=== PATIENT | male | born 1965 | race Caucasian/White ===

== ENCOUNTER 2017-07-26 14:45 | Outpatient (RCR) | payer OTHER | END 2017-09-02 10:39 | disposition home or self-care (01) | LOC: WSOH 14:45 | DX: S30.0XXA Contusion of lower back and pelvis, initial encounter (principal); M62.830 Muscle spasm of back; W22.8XXA Striking against or struck by other objects, initial encounter; Y99.0 Civilian activity done for income or pay; Z88.0 Allergy status to penicillin ==

== ENCOUNTER 2018-07-09 09:08 | Emergency (ER) | payer SELFPAY | END 2018-07-09 14:08 | disposition home or self-care (01) | LOC: COL.ER 09:08 | DX: R10.32 Left lower quadrant pain (principal); R19.7 Diarrhea, unspecified; J45.909 Unspecified asthma, uncomplicated; Z88.0 Allergy status to penicillin; Z90.89 Acquired absence of other organs; Z87.442 Personal history of urinary calculi; Z90.49 Acquired absence of other specified parts of digestive tract ==

== ENCOUNTER 2018-09-22 13:35 | Outpatient (RCR) | payer OTHER ==
[~2018-09-22 13:35] MED LIST: Inhaler; NORCO 325 MG-7.1 TAB PO; ZOFRAN ODT4 MG PO
== END 2018-10-03 15:45 | disposition home or self-care (01) ==
LOC: WSOH
DX: S70.11XA Contusion of right thigh, initial encounter (principal); W20.8XXA Other cause of strike by thrown, projected or falling object, initial encounter; Y92.512 Supermarket, store or market as the place of occurrence of the external cause; Y99.0 Civilian activity done for income or pay; I10 Essential (primary) hypertension; I12.9 Hypertensive chronic kidney disease with stage 1 through stage 4 chronic kidney disease, or unspecified chronic kidney disease; N18.9 Chronic kidney disease, unspecified; J45.909 Unspecified asthma, uncomplicated; Z90.49 Acquired absence of other specified parts of digestive tract; Z87.891 Personal history of nicotine dependence; Z88.0 Allergy status to penicillin; E66.3 Overweight; Z91.041 Radiographic dye allergy status
CPT/HCPCS: 24774; L1810

== ENCOUNTER 2018-10-16 14:06 | Outpatient (RCR) | payer OTHER | END 2018-11-13 10:24 | LOC: WSOH 14:06 | DX: S70.11XD Contusion of right thigh, subsequent encounter (principal) ==

== ENCOUNTER 2019-05-28 14:13 | Emergency (ER) | payer OTHER ==
[~2019-05-28] VITALS: Ht 165.1 cm; Wt 93.2 kg
[2019-05-28 14:22] VITALS: BP 194/94; TEMP 98.9
[2019-05-28] MEDS ORDERED: FLEXERIL 1010 MG/TAB PO (17:20)
[2019-05-28] MEDS ORDERED: NORCO 325 MG-51 TAB PO (17:20)
[2019-05-28] MEDS ORDERED: MEDROL 4MG DOSPA4 MG PO (17:20)
[2019-05-28 17:42] VITALS: PULSE 74
== END 2019-05-28 18:54 | disposition home or self-care (01) ==
LOC: COL.ER 14:13
DX: S33.9XXA Sprain of unspecified parts of lumbar spine and pelvis, initial encounter (principal); M54.16 Radiculopathy, lumbar region; X50.0XXA Overexertion from strenuous movement or load, initial encounter
CPT/HCPCS: J1885; J2360

== ENCOUNTER 2019-08-10 13:02 | Outpatient (RCR) | payer OTHER ==
[~2019-08-10 13:02] MED LIST changes: +FLEXERIL 1010 MG/TAB PO; +MEDROL 4MG DOSPA4 MG PO; +NORCO 325 MG-51 TAB PO
== END 2019-09-18 12:54 | disposition home or self-care (01) ==
LOC: WSOH 13:02
DX: S39.012A Strain of muscle, fascia and tendon of lower back, initial encounter (principal); M51.36 Other intervertebral disc degeneration, lumbar region; Z87.891 Personal history of nicotine dependence; Z90.49 Acquired absence of other specified parts of digestive tract; Z90.89 Acquired absence of other organs; J45.909 Unspecified asthma, uncomplicated; I10 Essential (primary) hypertension; N28.9 Disorder of kidney and ureter, unspecified; Y99.0 Civilian activity done for income or pay
CPT/HCPCS: G0283-GP

== ENCOUNTER 2020-11-24 16:33 | Inpatient (IN) | payer OTHER ==
[~2020-11-24] VITALS: Ht 180.3 cm; Wt 95.5 kg
[2020-11-24 18:03] LABS: BASO % 0.5 % (0.0-2.0); EOS # 0.1 (0.0-0.7); EOS % 0.9 % (0-4.0); GRAN # 6.3 (1.4-6.5); GRAN % 70.9 % (42.2-75.2); HEMATOCRIT 48.4 % (42.0-52.0); HEMOGLOBIN 15.9 g/dl (13.5-18.0); LYMPH # 1.7 (1.2-3.4); MEAN CELL VOLUME 91 fl (80.0-100.0); MEAN CORPUSCULAR HEMOGLOBIN 30 pg (27.0-31.0); MEAN CORPUSCULAR HGB CONC 33 g/dl (33.0-37.0); MEAN PLATELET VOLUME 11.4 fl (7.4-10.4); MONO # 0.8 (0.1-0.6); MONO % 8.5 % (1.7-9.3); PLATELET COUNT 240 K/mm3 (130-400); RED BLOOD COUNT 5.33 M/mm3 (4.20-5.60); REDCELL DISTRIBUTION WIDTH-CV 12.7 % (11.5-14.5)
[2020-11-24 18:04] LABS: INR 1.1 (0.8-3.0); PROTHROMBIN TIME 12.6 SECONDS (9.7-12.8)
[2020-11-24 18:08] LABS: ALANINE AMINOTRANSFERASE 17 U/L (4-49); ALBUMIN 4.2 gm/dL (3.5-5.0); ALKALINE PHOSPHATASE 62 U/L (50-136); ANION GAP 6 mmol/L (7-16); AST,SGOT 29 U/L (15-37); BILIRUBIN,TOTAL 0.7 mg/dL (0.0-1.0); BLOOD UREA NITROGEN 19 mg/dL (9-20); CALCIUM 9.5 mg/dL (8.4-10.2); CARBON DIOXIDE 24 mmol/L (22-30); CHLORIDE 109 mmol/L (98-107); CREATININE, serum 1.16 (0.66-1.25); GLUCOSE 112 mg/dL (74-106); SODIUM 139 mmol/L (137-145); TOTAL PROTEIN 8.1 gm/dL (6.4-8.2)
[2020-11-24 18:37] LABS: TROPONIN-I < 0.012 ng/mL (0.000-0.035)
[2020-11-24] MEDS ORDERED: PRINIVIL10 MG PO (19:17)
[2020-11-24] MEDS ORDERED: PROTONIX20 MG PO (19:17)
[2020-11-24 20:00] VITALS: BP 151/88; PULSE 75; TEMP 97.7
[2020-11-25 00:51] VITALS: BP 144/70; PULSE 69; TEMP 98.3
[2020-11-25 04:22] VITALS: BP 137/72; PULSE 56; TEMP 98.3
[2020-11-25 07:30] LABS: CHOLESTEROL RISK RATIO 3.3
[2020-11-25 07:44] VITALS: BP 137/83; PULSE 57; TEMP 98.5
[2020-11-25 09:57] LABS: CALCIUM 9.4 mg/dL (8.4-10.2); CREATININE, serum 1.28 (0.66-1.25); POTASSIUM 3.7 mmol/L (3.4-5.0)
[2020-11-25 09:58] LABS: HEMATOCRIT 49.1 % (42.0-52.0); HEMOGLOBIN 15.9 g/dl (13.5-18.0); MEAN CELL VOLUME 93 fl (80.0-100.0); MEAN CORPUSCULAR HEMOGLOBIN 30 pg (27.0-31.0); MEAN CORPUSCULAR HGB CONC 32 g/dl (33.0-37.0); PLATELET COUNT 246 K/mm3 (130-400); RED BLOOD COUNT 5.26 M/mm3 (4.20-5.60); REDCELL DISTRIBUTION WIDTH-CV 12.8 % (11.5-14.5)
[2020-11-25 11:53] VITALS: BP 148/89; PULSE 62; TEMP 97.6
[2020-11-25 17:14] VITALS: BP 152/83; PULSE 65; TEMP 97.4
[2020-11-25 20:11] VITALS: BP 157/80; PULSE 79; TEMP 97.6
[2020-11-26 00:08] VITALS: BP 145/82; PULSE 58; TEMP 97.8
[2020-11-26 04:00] VITALS: BP 120/70; PULSE 54; TEMP 97.7
[2020-11-26 07:25] LABS: HEMATOCRIT 48.4 % (42.0-52.0); HEMOGLOBIN 15.7 g/dl (13.5-18.0); MEAN CELL VOLUME 93 fl (80.0-100.0); MEAN CORPUSCULAR HEMOGLOBIN 30 pg (27.0-31.0); MEAN CORPUSCULAR HGB CONC 32 g/dl (33.0-37.0); MEAN PLATELET VOLUME 11.6 fl (7.4-10.4); PLATELET COUNT 222 K/mm3 (130-400); RED BLOOD COUNT 5.18 M/mm3 (4.20-5.60); REDCELL DISTRIBUTION WIDTH-CV 12.8 % (11.5-14.5)
[2020-11-26 07:34] LABS: CALCIUM 9.1 mg/dL (8.4-10.2); CREATININE, serum 1.24 (0.66-1.25); POTASSIUM 3.6 mmol/L (3.4-5.0)
[2020-11-26 08:07] VITALS: BP 157/74; PULSE 59; TEMP 98
[2020-11-26] MEDS ORDERED: LIPITOR 40MG TA40 MG PO (09:58)
[2020-11-26] MEDS ORDERED: PLAVIX 75MG TAB75 MG PO (09:58)
[2020-11-26] MEDS ORDERED: ZESTRIL40 MG PO (09:59)
[2020-11-26] MEDS ORDERED: ASPIRIN 81M81 MG/TA2 PO (10:00)
[2020-11-26 11:57] VITALS: BP 143/52; PULSE 60; TEMP 97.9
== END 2020-11-26 16:00 | disposition home or self-care (01) | DRG 65 ==
LOC: COL.ER 16:33 → MEDICAL 19:05 → EDBEDREQ 19:50 → MEDICAL 23:00 → SURG 11-25 15:37 → MEDICAL 11-26 14:16 → SURG 11-26 14:16 → MEDICAL 11-26 16:00
PROVIDERS: Physician Assistant; Student in an Organized Health Care Education/Training Program; ADMIT Internal Medicine
DX: I63.89 Other cerebral infarction (principal); N17.9 Acute kidney failure, unspecified; G81.94 Hemiplegia, unspecified affecting left nondominant side; G89.29 Other chronic pain; M54.9 Dorsalgia, unspecified; K21.9 Gastro-esophageal reflux disease without esophagitis; E78.5 Hyperlipidemia, unspecified; I10 Essential (primary) hypertension; R47.81 Slurred speech; M50.30 Other cervical disc degeneration, unspecified cervical region; Z90.49 Acquired absence of other specified parts of digestive tract
CPT/HCPCS: 99223-AI; 99232-AI; 99239; A9585; J1200; J1650; J2060; J2405; J7030; Q9967

== ENCOUNTER 2021-02-16 21:39 | Emergency (ER) | payer MEDICAID ==
[~2021-02-16] VITALS: Ht 165.1 cm; Wt 97.3 kg
[~2021-02-16 21:39] MED LIST changes: +ASPIRIN 81M81 MG/TA2 PO; +LIPITOR 40MG TA40 MG PO; +PLAVIX 75MG TAB75 MG PO; +PRINIVIL10 MG PO; +PROTONIX20 MG PO; +ZESTRIL40 MG PO
[2021-02-16 21:46] VITALS: TEMP 99.5
[2021-02-16 22:58] LABS: BASO # 0.1 (0.0-0.2); BASO % 0.5 % (0.0-2.0); EOS # 0.5 (0.0-0.7); EOS % 5.1 % (0-4.0); GRAN # 6.1 (1.4-6.5); GRAN % 62.1 % (42.2-75.2); HEMATOCRIT 44.9 % (42.0-52.0); HEMOGLOBIN 14.9 g/dl (13.5-18.0); LYMPH # 1.9 (1.2-3.4); LYMPH % 19.5 % (20.0-51.0); MEAN CELL VOLUME 93 fl (80.0-100.0); MEAN CORPUSCULAR HEMOGLOBIN 31 pg (27.0-31.0); MEAN CORPUSCULAR HGB CONC 33 g/dl (33.0-37.0); MEAN PLATELET VOLUME 11.5 fl (7.4-10.4); MONO # 1.2 (0.1-0.6); MONO % 12.5 % (1.7-9.3); PLATELET COUNT 201 K/mm3 (130-400); RED BLOOD COUNT 4.85 M/mm3 (4.20-5.60); REDCELL DISTRIBUTION WIDTH-CV 12.9 % (11.5-14.5)
[2021-02-16 23:15] LABS: ALBUMIN 4.1 gm/dL (3.5-5.0); BILIRUBIN,TOTAL 0.7 mg/dL (0.2-1.2); C-REACTIVE PROTEIN 0.2 mg/dL (0.00-0.50); CALCIUM 9.3 mg/dL (8.4-10.2); CREATININE, serum 1.43 mg/dL (0.72-1.25); POTASSIUM 4.3 mmol/L (3.5-4.5); TOTAL PROTEIN 7.9 gm/dL (6.2-8.1)
[2021-02-16 23:23] LABS: TROPONIN-I 0.01 ng/mL (0.00-0.033)
[2021-02-17] MEDS ORDERED: PREDNISONE20 MG PO (00:41)
[2021-02-17] MEDS ORDERED: ALBUTEROL0.83 MG/ML IH (00:58)
[2021-02-17 01:30] VITALS: BP 131/99; PULSE 79
== END 2021-02-17 01:30 | disposition home or self-care (01) ==
LOC: COL.ER 21:39
PROVIDERS: Nurse Practitioner
DX: J20.9 Acute bronchitis, unspecified (principal); I10 Essential (primary) hypertension; K21.9 Gastro-esophageal reflux disease without esophagitis; Z86.73 Personal history of transient ischemic attack (TIA), and cerebral infarction without residual deficits; Z20.822 Contact with and (suspected) exposure to COVID-19; Z79.02 Long term (current) use of antithrombotics/antiplatelets; Z79.899 Other long term (current) drug therapy
CPT/HCPCS: J7512

== ENCOUNTER → 2021-03-03 | Outpatient (RCR) | payer OTHER ==
[~2021-03-03] MED LIST changes: +ALBUTEROL0.83 MG/ML IH; +PREDNISONE20 MG PO
== END | disposition home or self-care (01) ==
LOC: MKS.ESL.OT → MKS.ESL.PT 12-01 13:15 → WSST 12-03 09:00 → MKS.ESL.PT 12-10 09:00 → MKS.ESL.OT 12-22 14:45 → WSST 01-01 09:45 → MKS.ESL.PT 01-02 10:30 → MKS.ESL.OT 01-05 14:00 → WSST 01-07 11:15 → MKS.ESL.OT 01-12 14:00 → MKS.ESL.PT 02-05 14:15 → MKS.ESL.OT 02-10 15:15
DX: I69.30 Unspecified sequelae of cerebral infarction (principal)

== ENCOUNTER 2021-03-10 13:45 | Outpatient (RCR) | payer MEDICAID | END 2021-05-15 | disposition home or self-care (01) | LOC: MKS.ESL.OT | DX: R53.1 Weakness (principal); Z86.73 Personal history of transient ischemic attack (TIA), and cerebral infarction without residual deficits ==

== ENCOUNTER 2021-07-07 11:00 | Outpatient (RCR) | payer MEDICAID | END 2021-07-13 | disposition still patient (30) | LOC: MKS.ESL.PT | DX: R53.1 Weakness (principal); Z86.73 Personal history of transient ischemic attack (TIA), and cerebral infarction without residual deficits ==

== ENCOUNTER 2021-07-16 12:51 | Emergency (ER) | payer MEDICAID ==
[~2021-07-16] VITALS: Ht 165.1 cm; Wt 95.5 kg
[2021-07-16 13:04] VITALS: BP 176/98; PULSE 72; TEMP 98.6
[2021-07-16 14:32] LABS: BASO # 0.1 K/mm3 (0.0-0.2); BASO % 0.6 % (0.0-2.0); EOS # 0.1 K/mm3 (0.0-0.7); EOS % 0.8 % (0.0-4.0); GRAN # 5.9 K/mm3 (1.4-6.5); GRAN % 70.4 % (42.2-75.2); HEMATOCRIT 45.8 % (42.0-52.0); HEMOGLOBIN 15.6 g/dl (13.5-18.0); LYMPH # 1.5 K/mm3 (1.2-3.4); MEAN CELL VOLUME 90 fl (80.0-100.0); MEAN CORPUSCULAR HEMOGLOBIN 31 pg (27-31); MEAN CORPUSCULAR HGB CONC 34 g/dl (33.0-37.0); MEAN PLATELET VOLUME 11.4 fl (7.4-10.4); MONO # 0.8 K/mm3 (0.1-0.6); PLATELET COUNT 228 K/mm3 (130-400); RED BLOOD COUNT 5.12 M/mm3 (4.20-5.60); REDCELL DISTRIBUTION WIDTH-CV 12.2 % (11.5-14.5)
[2021-07-16 14:34] LABS: COLLECTION METHOD CLEAN CATCH
[2021-07-16 14:41] LABS: MUCOUS Present (NOT PRESENT); PH 6 (5-8); SQUAMOUS EPITHELIAL None Seen /hpf (0-10); URINE APPEARANCE Clear (CLEAR/HAZY); URINE BACTERIA None Seen /hpf (NONE SEEN); URINE BILIRUBIN Negative (NEGATIVE); URINE BLOOD Negative (NEGATIVE); URINE COLOR Yellow (YELLOW); URINE GLUCOSE Negative (NEGATIVE); URINE KETONE Negative (NEGATIVE); URINE LEUKOCYTE ESTERASE Negative (NEGATIVE); URINE NITRATE Negative (NEGATIVE); URINE PROTEIN(semi-quant) Negative (NEGATIVE); URINE RBC 0-2 /hpf (0-2); URINE UROBILINOGEN Negative (NEGATIVE)
[2021-07-16 14:58] LABS: ALBUMIN 4.3 gm/dL (3.5-5.0); BILIRUBIN,TOTAL 0.8 mg/dL (0.2-1.2); CALCIUM 9.3 mg/dL (8.4-10.2); CREATININE, serum 1.29 mg/dL (0.72-1.25); POTASSIUM 4.2 mmol/L (3.5-4.5); TOTAL PROTEIN 7.7 gm/dL (6.2-8.1)
[2021-07-16] MEDS ORDERED: NORCO 325 MG-51 TAB PO (15:30)
[2021-07-16] MEDS ORDERED: ZOFRAN ODT4 MG PO (16:06)
== END 2021-07-16 16:08 | disposition home or self-care (01) ==
LOC: COL.ER 12:51
PROVIDERS: Emergency Medicine
DX: R10.32 Left lower quadrant pain (principal); Z90.49 Acquired absence of other specified parts of digestive tract; Z79.891 Long term (current) use of opiate analgesic

== ENCOUNTER 2021-07-24 12:45 | Outpatient (RCR) | payer MEDICAID | END 2021-08-13 | disposition still patient (30) | LOC: MKS.ESL.PT | DX: R29.898 Other symptoms and signs involving the musculoskeletal system (principal); I69.30 Unspecified sequelae of cerebral infarction; M54.30 Sciatica, unspecified side ==

== ENCOUNTER → 2021-09-16 | Outpatient (CLI) | payer MEDICAID | LOC: COL.LAB 14:01 → COL.RAD 14:07 | DX: R05.9 Cough, unspecified (principal) ==

== ENCOUNTER 2021-10-05 10:14 | Outpatient (RCR) | payer MEDICAID | END 2021-10-05 10:15 | disposition home or self-care (01) | LOC: MKS.ESL.PT 10:14 | DX: I69.30 Unspecified sequelae of cerebral infarction (principal); R29.898 Other symptoms and signs involving the musculoskeletal system ==

== ENCOUNTER → 2021-10-05 10:16 | Outpatient (RCR) | payer MEDICAID ==
[~2021-10-05 10:16] MED LIST changes: +PROVENTIL0.09 MG/A1 IH; +TESSALON PERLE200 MG PO; +ZITHROMAX Z PA250 MG PO
== END | disposition home or self-care (01) ==
LOC: MKS.ESL.PT 08-14 12:45
DX: R42 Dizziness and giddiness (principal)

== ENCOUNTER → 2021-10-22 | Outpatient (CLI) | payer MEDICAID ==
[~2021-10-22] MED LIST changes: -PROVENTIL0.09 MG/A1 IH; -TESSALON PERLE200 MG PO; -ZITHROMAX Z PA250 MG PO
== END ==
LOC: COL.RAD 13:54
DX: I63.9 Cerebral infarction, unspecified (principal)

== ENCOUNTER 2021-11-30 14:56 | Emergency (ER) | payer MEDICAID ==
[~2021-11-30] VITALS: Ht 165.1 cm; Wt 97.3 kg
[2021-11-30 16:02] VITALS: TEMP 98.5
[2021-11-30 18:14] LABS: BASO % 0.3 % (0.0-2.0); EOS # 0.4 K/mm3 (0.0-0.7); EOS % 3.4 % (0.0-4.0); GRAN # 8.6 K/mm3 (1.4-6.5); GRAN % 73.4 % (42.2-75.2); HEMATOCRIT 43.3 % (42.0-52.0); HEMOGLOBIN 14.6 g/dl (13.5-18.0); LYMPH # 1.6 K/mm3 (1.2-3.4); LYMPH % 13.4 % (20.0-51.0); MEAN CELL VOLUME 91 fl (80.0-100.0); MEAN CORPUSCULAR HEMOGLOBIN 31 pg (27-31); MEAN CORPUSCULAR HGB CONC 34 g/dl (33.0-37.0); MONO # 1.1 K/mm3 (0.1-0.6); MONO % 9.2 % (1.7-9.3); PLATELET COUNT 225 K/mm3 (130-400); RED BLOOD COUNT 4.78 M/mm3 (4.20-5.60); REDCELL DISTRIBUTION WIDTH-CV 12.9 % (11.5-14.5)
[2021-11-30 18:28] LABS: ALBUMIN 4.2 gm/dL (3.5-5.0); BILIRUBIN,TOTAL 1.1 mg/dL (0.2-1.2); CALCIUM 9.5 mg/dL (8.4-10.2); CREATININE, serum 1.22 mg/dL (0.72-1.25); POTASSIUM 3.7 mmol/L (3.5-4.5); TOTAL PROTEIN 7.7 gm/dL (6.2-8.1)
[2021-11-30] MEDS ORDERED: ZITHROMAX Z PA250 MG PO (19:11)
[2021-11-30] MEDS ORDERED: PREDNISONE20 MG PO (19:11)
[2021-11-30] MEDS ORDERED: TESSALON PERLE200 MG PO (19:11)
[2021-11-30 19:30] VITALS: BP 163/89; PULSE 81
[2021-11-30] MEDS ORDERED: PROVENTIL0.09 MG/A1 IH (19:40)
== END 2021-11-30 19:30 | disposition home or self-care (01) ==
LOC: COL.ER 14:56
PROVIDERS: Nurse Practitioner Family
DX: J45.901 Unspecified asthma with (acute) exacerbation (principal); I10 Essential (primary) hypertension; Z20.822 Contact with and (suspected) exposure to COVID-19; Z87.891 Personal history of nicotine dependence; Z88.0 Allergy status to penicillin
CPT/HCPCS: J2930

== ENCOUNTER → 2022-02-10 | Outpatient (CLI) | payer MEDICAID ==
[~2022-02-10] MED LIST changes: +PROVENTIL0.09 MG/A1 IH; +TESSALON PERLE200 MG PO; +ZITHROMAX Z PA250 MG PO
== END ==
LOC: COL.VAS 13:15
DX: R06.02 Shortness of breath (principal)

== ENCOUNTER → 2022-08-09 | Outpatient (CLI) | payer MEDICAID | LOC: COL.LAB 07:17 | DX: N52.9 Male erectile dysfunction, unspecified (principal) ==

== ENCOUNTER 2022-08-19 18:47 | Emergency (ER) | payer MEDICAID ==
[~2022-08-19] VITALS: Ht 165.1 cm; Wt 99.1 kg
[2022-08-19 18:58] VITALS: TEMP 98.2
[2022-08-19 19:28] LABS: BASO % 0.5 % (0.0-2.0); EOS # 0.1 K/mm3 (0.0-0.7); EOS % 1.6 % (0.0-4.0); GRAN # 5.3 K/mm3 (1.4-6.5); GRAN % 65.9 % (42.2-75.2); HEMATOCRIT 44.4 % (42.0-52.0); HEMOGLOBIN 15.2 g/dl (13.5-18.0); LYMPH # 1.8 K/mm3 (1.2-3.4); LYMPH % 22.6 % (20.0-51.0); MEAN CELL VOLUME 91 fl (80.0-100.0); MEAN CORPUSCULAR HEMOGLOBIN 31 pg (27-31); MEAN CORPUSCULAR HGB CONC 34 g/dl (33.0-37.0); MEAN PLATELET VOLUME 11.3 fl (7.4-10.4); MONO # 0.8 K/mm3 (0.1-0.6); MONO % 9.3 % (1.7-9.3); PLATELET COUNT 184 K/mm3 (130-400); RED BLOOD COUNT 4.88 M/mm3 (4.20-5.60); REDCELL DISTRIBUTION WIDTH-CV 13.2 % (11.5-14.5)
[2022-08-19 19:44] LABS: ALBUMIN 4.1 gm/dL (3.5-5.0); BILIRUBIN,TOTAL 0.9 mg/dL (0.2-1.2); CALCIUM 9.3 mg/dL (8.4-10.2); CREATININE, serum 1.14 mg/dL (0.72-1.25); POTASSIUM 3.8 mmol/L (3.5-4.5); TOTAL PROTEIN 7.8 gm/dL (6.2-8.1)
[2022-08-19 20:23] LABS: COLLECTION METHOD CLEAN CATCH
[2022-08-19 20:35] LABS: MUCOUS Present (NOT PRESENT); SQUAMOUS EPITHELIAL None Seen /hpf (0-10); URINE BACTERIA None Seen /hpf (NONE SEEN); URINE RBC 0-2 /hpf (0-2)
[2022-08-19 20:41] LABS: PH 5.5 (5.0-8.5); URINE APPEARANCE Clear (CLEAR/HAZY); URINE BLOOD TRACE-INTACT (NEGATIVE); URINE COLOR Yellow (YELLOW); URINE GLUCOSE Negative (NEGATIVE); URINE KETONE TRACE (NEGATIVE); URINE NITRATE Negative (NEGATIVE); URINE PROTEIN(semi-quant) Negative (NEGATIVE); URINE UROBILINOGEN 0.2 E.U/dL (0.2-1.0)
[2022-08-19 22:02] VITALS: BP 160/99; PULSE 64
== END 2022-08-19 22:02 | disposition home or self-care (01) ==
LOC: COL.ER 18:47
PROVIDERS: Nurse Practitioner Primary Care
DX: K58.9 Irritable bowel syndrome, unspecified (principal); Z90.49 Acquired absence of other specified parts of digestive tract
CPT/HCPCS: J1885; J7120